=== PATIENT | female | born 1970 | race Caucasian/White ===

== ENCOUNTER 2017-02-15 04:36 | Day surgery (SDC) | payer BC ==
[2017-02-08 09:52] LABS: HEMATOCRIT 40.9 % (36.0-48.0); HEMOGLOBIN 14.4 g/dL (12.0-16.0)
[2017-02-08 10:03] LABS: BUN (BLOOD UREA NITROGEN) 16 MG/DL (6-23); CALCIUM, SERUM 9.2 MG/DL (8.5-10.4); CHLORIDE, SERUM 105 MMOL/L (96-112); CREATININE 0.79 MG/DL (0.55-1.02); GFR AFRICAN AMERICAN 103 ML/MIN (>=60); GFR NON AFRICAN AMERICAN 89 ML/MIN (>=60); POTASSIUM, SERUM 3.5 MMOL/L (3.5-5.3); SODIUM, SERUM 137 MMOL/L (135-148)
[2017-02-08 10:04] LABS: CO2 (CARBON DIOXIDE) 23 MMOL/L (24-34); GLUCOSE, SERUM 131 MG/DL (60-99)
--- NOTE | ~2017-02-15 | OP ---
Record Of Operation [facility] [address] [place]. [address] NAME: DERICK AGUILAR : 68 STATUS : REG [facility] [place] PAT#: [id number] AGE: 46 ADM/REG DATE : 02/15/17 MR#: [id number] REPORT SERV DATE: 02/15/17 DICTATED BY: SELVIN QIU DATE: 02/15/17 REPORT STATUS : Draft TRANSCRIBED BY: MODL DATE: 02/15/17 DATE OF PROCEDURE: 02/15/2017 PREOPERATIVE DIAGNOSES: Right patella lateralization, chondromalacia. POSTOPERATIVE DIAGNOSES: Right patella lateralization, chondromalacia.. PROCEDURE: Right lateral release and medial patellofemoral ligament plication, mini open. SURGEON: Selvin Qiu M.D. COMPLICATIONS: None. ANESTHESIA: General endotracheal. INDICATIONS: This 46-year-old female, squatted down, and had acute injury to her knee with effusion and persistent pain and grinding of the patella. She had lateralization on axial views and positive grind with slight positive Daley's. She had some chondromalacia by MRI. She wished to proceed with operative intervention after discussion of above procedure. DESCRIPTION OF PROCEDURE: The patient was induced in supine position. Right lower extremity was prepped and draped in the standard surgical fashion. A time-out protocol was enforced. Ancef was administered. Anterolateral portal was created for diagnostic arthroscopy, which revealed two quadrants of lateralization of the patella. There was grade 2 chondromalacia of the patella and trochlea and also of the tibial plateau on the lateral plateau and medial condyle. Menisci were normal. ACL, PCL were normal. Chondroplasty: Accessory medial portal was created. Fat pad was taken down. Chondroplasty of the lateral tibia and the medial femoral condyle was performed. We went up into extension and debrided the undersurface of the patella, smoothing the surface to a stable margin. Lateral Release: We used the wand to perform a gentle lateral release laterally and decreased the contact pressures on the lateral facet. We then assessed and I felt that plication was going to be necessary to re-centralize the patella from the medial side. Mini open approach was performed after spinal needle localization. We went to the origin of the MPFL and initially tapped for a Helicoil, but the bone was relatively hard, so we replaced that with acute fix, which had good fixation. We then repaired the MPFL and plicated it back to the patella with interlocking Blane-Costa sutures. The wounds were then closed in layers. The patient tolerated the procedure well and was taken to PACU in stable condition. POSTOP PLAN: Touchdown weightbearing in extension of the patellofemoral, rehab to begin this Record Of Operation [address] [place] [address] NAME: DERICK AGUILAR : 68 STATUS : REG [facility] [place] PAT#: [id number] AGE: 46 ADM/REG DATE : 02/15/17 MR#: [id number] REPORT SERV DATE: 02/15/17 DICTATED BY: SELVIN QIU. DATE: 02/15/17 REPORT STATUS : Draft TRANSCRIBED BY: NÉSTOR DATE: 02/15/17 week. FELICIA/NÉSTOR Selvin Qiu M.D. / [id number] CC: Gabo Lomax M.D.
[~2017-02-15 04:36] MED LIST: ADVIL PO; ANASPAZ0.125 MG SL; BELLA/OPIUM PR; BYSTOLIC5 MG PO; CEFT5 PO; CIP2 PO; DIL2TAB PO; DITRO5 PO; FLONASE NAS; HYDROCHLOROT12.5 MG PO; HYOSCYAMINE; LEVSINTAB PO; LORTAB 5 PO; MAXIMUM D3 PO; MEGA RED PO; MOBIC15 MG PO; NEUR300 PO; NEXIUM40 PO; NORCO1 TA2 PO; P20 PO; POTASSIUM PO; PRAVACHOL80 MG PO; PROBIOTIC PO; PYR100B PO; V5 PO; VITAMIN B3 PO; VIVELLE SY0.1 MG/24 TOP; VIVELLE-DOT0.1 MG TOP; WELL75 PO; WELLXL300 PO; Wellbutrin PO; ZANTAC 150 PO; ZETIA PO; [UNRECOGNIZED DRUG - OTHER] PO
== END 2017-02-15 14:31 | disposition home or self-care (01) ==
LOC: SDC 04:36
PROVIDERS: Orthopaedic Surgery Sports Medicine
PROC: 0QQD0ZZ Repair Right Patella, Open Approach (ICD-10-PCS; principal; 2017-02-15 05:45)
DX: M22.41 Chondromalacia patellae, right knee (principal); I10 Essential (primary) hypertension
CPT/HCPCS: 80048; 85014; 85018; 93005; A9270-GY; C1713; J0690; J1170; J2250; J2274; J2405; J3010